=== PATIENT | female | born 1985 | race Hispanic/Latino ===

== ENCOUNTER 2019-07-03 | Emergency (ER) | payer OTHER ==
--- NOTE | 2019-07-03 16:01 | ER ---
Nurse's Notes [facility] Name: Cathy Parish Age: 33 yrs Sex: Female : 1985 Arrival Date: 07/03/2019 Time: 14:58 Bed External Waiting Private MD: Diagnosis: Assessment: 07/02 15:08 Reassessment: pt not in lobby, was sent to L\T\D by registration. 15:59 Reassessment: spoke with L\T\D, pt was given Tylenol and sent home by Dr. Vale. ED Course: 14:58 Patient arrived in ED. [id number] Administered Medications: No medications were administered Outcome: 16:01 Patient left the ED. Signatures: Milly Brewer RN RN Neal Cm ag5
== END 2019-07-03 16:01 | disposition left against medical advice (07) ==
DX: Z53.21 Procedure and treatment not carried out due to patient leaving prior to being seen by health care provider (principal)